=== PATIENT | female | born 1985 | race Caucasian/White ===

== ENCOUNTER 2017-01-30 21:39 | Emergency (ER) | payer MEDICARE, MEDICAID ==
[~2017-01-30] VITALS: Ht 162.6 cm; Wt 69.9 kg
[2017-01-30] MEDS ORDERED: BREO1INH3 INH (21:58)
[2017-01-30] MEDS ORDERED: ALBU83IN INH (21:58)
[2017-01-30] MEDS ORDERED: VITA250L PO (21:58)
[2017-01-30] MEDS ORDERED: IRON65TA PO (21:58)
[2017-01-30] MEDS ORDERED: PROA1AER INH (21:58)
[2017-01-30] MEDS ORDERED: SING10TA32 PO (21:58)
[2017-01-30] MEDS ORDERED: LEVO10VL IM (21:58)
[2017-01-30] MEDS ORDERED: dexameTHASONE 20 MG/5 ML VIAL (J1100) IV ONE (22:00)
[2017-01-30] MEDS ORDERED: MAGNESIUM *L&D* 4 GM/100 ML BAG (40MG/ML) (J3475) IV ONE (22:00)
[2017-01-30] MEDS: IPRATROPIUM 0.5MG/ALBUTEROL 2.5MG INH SOL UD 3ML (DUONEB)(J7620) NEB SCH ×2 (22:09→22:10)
[2017-01-30] MEDS: LEVALBUTEROL 1.25 MG/0.5 ML CONCENTRATE NEB INH SCH ×2 (23:30→23:31)
[2017-01-31 00:27] LABS: ABG BASE EXCESS -3.9 (-2.0-2.0); ABG HCO3 19.7 MEQ/L (22.0-26.0); ABG PARTIAL PRESSURE CO2 31.9 mmHg (35.0-45.0); ABG PARTIAL PRESSURE O2 170.1 mmHg (75.0-100.0); ABG STANDARD HCO3 21.3 MEQ/L (22.0-26.0); ABG TOTAL CO2 20.7 MEQ/L (22.0-29.0); ABG pH (ARTERIAL) 7.409 UNITS (7.350-7.450)
[2017-01-31 01:14] VITALS: BP 115/63
[2017-01-31] MEDS ORDERED: PRED20TA PO (02:03)
--- NOTE | 2017-01-31 08:39 | REP ---
Portable chest, 01/30/2017, 10:09 p.m., single frontal view: Comparisons 01/16/2010. The focal density noted in the left parahilar zone previously is no longer present. There is a healed fracture of the left sixth rib, not present previously. Lung pham are clear. Cardiac size is normal. The josé miguel, mediastinum, and bony thorax are unremarkable. Impression: There are no acute cardiopulmonary findings. Signed by Itz Hassan MD 01/31/2017 08:30 A
[2017-01-31] MEDS ORDERED: B-1210009 PO (12:09)
[2017-01-31] MEDS ORDERED: BREO1INH INH (12:09)
[2017-01-31] MEDS ORDERED: LEVO100T5 PO (12:09)
== END 2017-01-31 02:16 | disposition left against medical advice (07) ==
LOC: M ED 22:29
DX: J96.00 Acute respiratory failure, unspecified whether with hypoxia or hypercapnia (principal); Z91.040 Latex allergy status; J30.1 Allergic rhinitis due to pollen; Z79.899 Other long term (current) drug therapy; Z79.51 Long term (current) use of inhaled steroids; Z87.891 Personal history of nicotine dependence
CPT/HCPCS: 36600; 71010; 82803; 94640; 96374; 96375; 99284; J1100; J3475

== ENCOUNTER 2017-01-31 10:25 | Observation (INO) | payer MEDICARE, MEDICAID ==
[~2017-01-31] VITALS: Ht 157.5 cm; Wt 67.1 kg
[~2017-01-31 10:25] MED LIST: ALBU83IN INH; BREO1INH3 INH; IRON65TA PO; LEVO10VL IM; LEVOTHYROXINE 100MCG TABLET (0.1MG) PO SCH; PRED20TA PO; PROAAER10 INH; SING10TA32 PO; VITA250L PO
[2017-01-31] MEDS ORDERED: MAG SULF 1GM/100ML (MAG RUN) 1 GM in APPROPRIATE DILUENT 1 EA IV ONE (11:00)
[2017-01-31] MEDS ORDERED: IPRATROPIUM 0.5MG/ALBUTEROL 2.5MG INH SOL UD 3ML (DUONEB)(J7620) NEB ONE ×2 (11:00→11:45)
[2017-01-31] MEDS ORDERED: ALBUTEROL SULFATE 2.5 MG/0.5 ML INH NEB SOLN NEB ONE ×2 (11:00→11:45)
[2017-01-31] MEDS ORDERED: methylPREDNISolone INJ 125 MG/2 ML VIAL (J2930) IV ONE (11:00)
[2017-01-31 11:52] LABS: ANION GAP 8 MEQ/L (8-16); BLOOD UREA NITROGEN 11 MG/DL (7-18); CALCIUM LEVEL 9.3 MG/DL (8.5-10.1); CARBON DIOXIDE LEVEL 23 MEQ/L (21-32); CHLORIDE LEVEL 107 MEQ/L (98-107); CREATININE FOR GFR 0.66 MG/DL (0.55-1.02); GLOMERULAR FILTRATION RATE > 60.0 (>60); GLUCOSE, FASTING 116 MG/DL (70-105); POTASSIUM SERUM 4.4 MEQ/L (3.5-5.1); SODIUM LEVEL 138 MEQ/L (136-145)
[2017-01-31 11:54] LABS: BASO % 0.1 % (0.0-1.0); EOS % 0.1 % (0.0-3.0); LARGE UNSTAINED CELL % 0.4 % (0.0-4.0); LYMPH # 0.8 K/mm3 (1.5-4.5); LYMPH % 8.5 % (24.0-44.0); MEAN CORPUSCULAR HEMOGLOBIN 28.6 pg (27.0-33.0); MEAN CORPUSCULAR HGB CONC 33.4 g/dl (32.0-36.5); MEAN CORPUSCULAR VOLUME 85.8 fl (80.0-96.0); MONO # 0.3 K/mm3 (0.0-0.8); MONO % 3.4 % (0.0-5.0); NEUTROPHILS # 8.3 K/mm3 (1.8-7.7); NEUTROPHILS % 87.6 % (36.0-66.0); PLATELET COUNT, AUTOMATED 281 k/mm3 (150-450); RED CELL DISTRIBUTION WIDTH 14.1 % (11.5-14.5); WHITE BLOOD COUNT 9.5 K/mm3 (4.0-10.0)
--- NOTE | 2017-01-31 12:05 | REP ---
Portable chest, 01/31/2017, 53, single AP view, the patient sitting: Comparison is 2016. Lung pham are clear. Cardiac size is normal. The josé miguel, mediastinum, and bony thorax are unremarkable. There is no filled left sixth rib fracture. Impression: No acute cardiopulmonary findings. Signed by Itz Hassan MD 01/31/2017 11:57 A
[2017-01-31] MEDS ORDERED: B-1210009 PO (12:09)
[2017-01-31] MEDS ORDERED: LEVO100T5 PO (12:09)
[2017-01-31] MEDS ORDERED: BREO1INH INH (12:09)
--- NOTE | 2017-01-31 13:14 | HPEPDOC ---
General Date of Admission 01/31/17 Other Providers Patient cannot remember name of PCP at this time Chief Complaint The patient is a 31-year-old female admitted with a reason for visit of Asthma. History of Present Illness 31-year-old female with past medical history of hypothyroidism, iron deficiency anemia, seasonal allergies, and asthma presented to the ER with a chief complaint of worsening shortness of breath associated with a nonproductive cough over the last 3 days. The patient states that during this time the patient has felt subjective fevers, chills, and generalized malaise. She denies any sick contacts. She states that she has been trying to use her albuterol treatments at home, but her shortness of breath has not improved. The patient does state that she usually has an asthma exacerbation when the weather is changing from season to season. She denies any history of intubations in the past. At this time, the patient denies any acute complaints of chest pain, palpitations, abdominal pain, lightheadedness/dizziness, or any nausea/vomiting/ diarrhea. Of note, the patient did present earlier this morning to the ER for treatment of the same, however left AGAINST MEDICAL ADVICE. She now returns for worsening of her shortness of breath. At this time, the patient will be admitted under the hospitalist service for further evaluation and management of asthma exacerbation. Home Medications Scheduled (Iron) 325 Mg Tab, 325 MG PO DAILY, (Reported) Cyanocobalamin (B-12) 1,000 Mcg Tab, 1,000 MCG PO DAILY, (Reported) Fluticasone/Vilanterol (Breo Ellipta 100-25 Mcg/INH) 1 Inh Inh, 1 PUFF INH DAILY , (Reported) Levothyroxine Sodium (Synthroid) 100 Mcg Tab, 100 MCG PO DAILY, (Reported) Montelukast Sodium (Singulair) 10 Mg Tab, 10 MG PO DAILY, (Reported) Scheduled PRN Albuterol Sulfate (Proair Hfa) 108 Mcg/Act Aer, 2 PUFF INH Q4H PRN for SOB/ WHEEZING, (Reported) Albuterol Sulfate (Albuterol Sulfate) 2.5 Mg/3 Ml Nebu, 2.5 MG INH for SOB/ WHEEZING, (Reported) Allergies Coded Allergies: Latex (Verified Allergy, Intermediate, RASH, 01/30/17) Pollen Extract (Verified Allergy, Unknown, 01/30/17) Prednisone (Verified Allergy, Unknown, 01/30/17) hives Pregabalin (Verified Allergy, Unknown, 01/30/17) throat closure Pseudoephedrine (Verified Allergy, Unknown, 01/30/17) diff breathing Topiramate (Verified Allergy, Unknown, 01/30/17) feet numbness Tramadol (Verified Allergy, Unknown, 01/30/17) throat closure Past Medical History Medical History As noted in HPI. Surgical History Surgery for hammertoe and bunions over 15 years ago Family History Significant Family History: No pertinent family hx Social History * Smoker: former Smoker, other (previously smoked half a pack to pack a day for 17+ years of tobacco. Quit one month ago) Alcohol: Denies Drugs: denies Functionally independent at baseline. On disability. Review of Symptoms Constitutional: Reports: Chills, Fever, Malaise Eyes: Denies: Pain, Vision change ENT: Denies: Head Aches, Ear Pain Skin: Denies: Rash, Lesions Pulmonary: Reports: Dyspnea, Cough Cardiovascular: Denies: Chest Pain, Palpitations Gastrointestinal: Denies: Nausea, Vomiting, Abdominal Pain Genitourinary: Denies: Dysuria, Frequency, Incontinence Hematologic: Denies: Bruising, Bleeding Excessively Physical Examination General Exam: Positive: Alert, Cooperative, Mild Distress ENT Exam: Positive: Atraumatic, Mucous membr. moist/pink Neck Exam: Negative: JVD Chest Exam: Positive: Rhonchi, Wheezing, Diminished, Negative: Rales Heart Exam: Positive: Rate Normal, Normal S1, Normal S2 Telemetry: Positive: Sinus Abdomen Exam: Positive: Soft, Negative: Tenderness Extremity Exam: Negative: Tenderness, Swelling Psych Exam: Positive: Oriented x 3 Vital Signs Vital Signs Date Time Temp Pulse Resp B/P (MAP) Pulse Ox O2 Delivery O2 Flow Rate FiO2 01/31/17 11:58 118 01/31/17 10:50 01/31/17 10:26 97.3 22 92 Room Air Laboratory Data Labs 24H Laboratory Tests 2 01/31/17 11:04: White Blood Count 9.5, Red Blood Count 5.06, Hemoglobin 14.5, Hematocrit 43.4, Mean Corpuscular Volume 85.8, Mean Corpuscular Hemoglobin 28.6, Mean Corpuscular Hemoglobin Concent 33.4, Red Cell Distribution Width 14.1, Platelet Count 281, Neutrophils (%) (Auto) 87.6H, Lymphocytes (%) (Auto) 8.5L, Monocytes (%) (Auto) 3.4, Eosinophils (%) (Auto) 0.1, Basophils (%) (Auto) 0.1, Neutrophils # (Auto) 8.3H, Lymphocytes # (Auto) 0.8L, Monocytes # (Auto) 0.3, Eosinophils # (Auto) 0.0, Basophils # (Auto) 0.0, Large Unclassified Cells % 0.4 , Large Unclassified Cells # 0.0, Anion Gap 8, Glomerular Filtration Rate > 60.0 , Blood Urea Nitrogen 11, Creatinine 0.66, Sodium Level 138, Potassium Level 4.4 , Chloride Level 107, Carbon Dioxide Level 23, Calcium Level 9.3 CBC/BMP Laboratory Tests 01/31/17 11:04 Red Blood Count 5.06, Mean Corpuscular Volume 85.8, Mean Corpuscular Hemoglobin 28.6, Mean Corpuscular Hemoglobin Concent 33.4, Red Cell Distribution Width 14.1 , Neutrophils (%) (Auto) 87.6 H, Lymphocytes (%) (Auto) 8.5 L, Monocytes (%) ( Auto) 3.4, Eosinophils (%) (Auto) 0.1, Basophils (%) (Auto) 0.1, Neutrophils # ( Auto) 8.3 H, Lymphocytes # (Auto) 0.8 L, Monocytes # (Auto) 0.3, Eosinophils # ( Auto) 0.0, Basophils # (Auto) 0.0, Calcium Level 9.3 Plan / VTE VTE Prophylaxis Ordered?: Yes Plan Plan Asthma Exacerbation We will admit the patient to med/surge unit Chest x-ray with no acute findings Respiratory panel, sputum culture ordered At this time, the patient does not have any indication for antibiotics as this does appear to be viral in etiology Solu-Medrol 60 mg every 6 hours ordered We will order [id number] nebulizer therapy We will continue to monitor the patient's respiratory status Hypothyroidism Continue supplementation Iron deficiency anemia Hemoglobin appears to be stable Continue iron supplementation Seasonal allergies Continue montelukast DVT prophylaxis Lovenox SC The patient will be admitted under the service of Dr. Cody, who will begin to follow the patient on 02/01/17 at 7 AM. PARKER ROYAL MD Jan 31, 2017 13:14
[2017-01-31] MEDS ORDERED: ONDANSETRON 4MG/2ML VIAL (J2405) IV PRN (13:15)
[2017-01-31] MEDS ORDERED: IPRATROPIUM 0.5MG/ALBUTEROL 2.5MG INH SOL UD 3ML (DUONEB)(J7620) NEB PRN (13:15)
[2017-01-31] MEDS ORDERED: NS 1,000 ML IV SCH (14:00)
[2017-01-31] MEDS: methylPREDNISolone INJ 125 MG/2 ML VIAL (J2930) IV SCH ×2 (14:17→20:35)
[2017-01-31] MEDS: ENOXAPARIN 40 MG/0.4 ML SYRINGE (J1650) SC SCH (14:18)
[2017-01-31] MEDS: MONTELUKAST 10 MG TAB PO SCH (14:19)
[2017-01-31] MEDS: LEVOTHYROXINE 100MCG TABLET (0.1MG) PO SCH (14:19)
[2017-01-31] MEDS: guaiFENesin ER 600 MG TAB PO SCH ×2 (14:19→20:36)
[2017-01-31] MEDS: FERROUS SULFATE 325MG TAB PO SCH (14:19)
[2017-01-31] MEDS: CYANOCOBALAMIN 500 MCG TAB PO SCH (14:19)
[2017-01-31] MEDS: ADVAIR DISKUS 250/50 INH PWD INH SCH ×2 (14:31→19:59)
[2017-01-31] MEDS: IPRATROPIUM 0.5MG/ALBUTEROL 2.5MG INH SOL UD 3ML (DUONEB)(J7620) NEB SCH ×3 (14:55→23:37)
[2017-01-31] MEDS: ACETAMINOPHEN TAB 650MG DOSE (2X325MG) PO PRN (14:58)
[2017-01-31 15:45] VITALS: BP 105/57
[2017-01-31 20:00] VITALS: BP 124/55
[2017-02-01 02:25] VITALS: BP 132/87
[2017-02-01] MEDS: methylPREDNISolone INJ 125 MG/2 ML VIAL (J2930) IV SCH ×4 (02:27→20:16)
[2017-02-01] MEDS: PANTOPRAZOLE 40MG INJ (PROTONIX) (C9113) IV SCH ×2 (03:21→20:17)
[2017-02-01] MEDS: CEPACOL LOZENGE PO PRN ×2 (03:44→20:17)
[2017-02-01] MEDS: IPRATROPIUM 0.5MG/ALBUTEROL 2.5MG INH SOL UD 3ML (DUONEB)(J7620) NEB SCH ×5 (04:00→21:56)
[2017-02-01] MEDS: LEVOTHYROXINE 100MCG TABLET (0.1MG) PO SCH (06:23)
[2017-02-01 06:48] LABS: MEAN CORPUSCULAR HEMOGLOBIN 28.4 pg (27.0-33.0); MEAN CORPUSCULAR HGB CONC 33.3 g/dl (32.0-36.5); MEAN CORPUSCULAR VOLUME 85.3 fl (80.0-96.0); RED CELL DISTRIBUTION WIDTH 14.2 % (11.5-14.5); WHITE BLOOD COUNT 13.5 K/mm3 (4.0-10.0)
[2017-02-01 07:08] LABS: ANION GAP 6 MEQ/L (8-16); BLOOD UREA NITROGEN 14 MG/DL (7-18); CALCIUM LEVEL 8.7 MG/DL (8.5-10.1); CARBON DIOXIDE LEVEL 25 MEQ/L (21-32); CHLORIDE LEVEL 108 MEQ/L (98-107); CREATININE FOR GFR 0.55 MG/DL (0.55-1.02); GLOMERULAR FILTRATION RATE > 60.0 (>60); GLUCOSE, FASTING 161 MG/DL (70-105); MAGNESIUM LEVEL 2.3 MG/DL (1.8-2.4); POTASSIUM SERUM 4.1 MEQ/L (3.5-5.1); SODIUM LEVEL 139 MEQ/L (136-145)
[2017-02-01 08:30] VITALS: BP 93/69
[2017-02-01] MEDS: MONTELUKAST 10 MG TAB PO SCH (08:35)
[2017-02-01] MEDS: FERROUS SULFATE 325MG TAB PO SCH (08:35)
[2017-02-01] MEDS: CYANOCOBALAMIN 500 MCG TAB PO SCH (08:35)
[2017-02-01] MEDS: CETIRIZINE (ZyrTEC) 10 MG TAB PO SCH (08:36)
[2017-02-01] MEDS: ENOXAPARIN 40 MG/0.4 ML SYRINGE (J1650) SC SCH (08:37)
[2017-02-01] MEDS: guaiFENesin ER 600 MG TAB PO SCH ×2 (08:40→20:17)
[2017-02-01] MEDS: ADVAIR DISKUS 250/50 INH PWD INH SCH ×2 (11:53→21:56)
[2017-02-01 12:44] LABS: FREE T4 1.48 NG/DL (0.76-1.46)
--- NOTE | 2017-02-01 13:07 | IPN ---
DATE: 02/01/2017 SUBJECTIVE: The patient seen and examined in the room today. The patient stated that her breathing shows some improvement since admission. The patient continues to have significant cough. She feels there is some congestion near the bottom of the lungs. She just cannot get it out. The patient does complain of significant allergies and the patient has tried antihistamine in the past, which did not show any significant benefit. The patient in the last half year, the patient already have three asthma exacerbations. OBJECTIVE: VITAL SIGNS: Temperature is 98.2, pulse is 87, respirations 22, blood pressure is 93/69. Pulse oximetry 96% with 4 liters nasal cannula. GENERAL: Mild to moderate distress secondary to respiratory distress. Alert and oriented times three. HEENT: Normocephalic, atraumatic. Extraocular movements grossly intact. CARDIOVASCULAR: Positive inspiratory and expiratory wheezes. Poor respiratory effort. Accessory muscle use. No rhonchi appreciated. ABDOMEN: Soft, nontender, nondistended. Bowel sounds present. No rebound. No guarding. EXTREMITIES: No edema. No sign of cyanosis. LABORATORY DATA: WBC is 13.5, hemoglobin 11.9, hematocrit 35.7, platelet count is 245. Sodium is 139, potassium 4.1, chloride is 108. Carbon dioxide 25, BUN 14, creatinine 0.55. GFR greater than 60. Fasting glucose is 161. Calcium is 8.7. Magnesium 2.8. TSH is 0.094. ASSESSMENT AND PLAN: 1. Asthma exacerbation. The patient is currently started on the IV Solu-Medrol. The patient has nebulizer treatment as needed around the clock. Respiratory panel is negative. Follow with sputum cultures. The patient will have a trial of Acapella. Will start a trial of Zyrtec. 2. Hypothyroidism. Currently the patient has been taking Synthroid at 100 mcg. The patient showing extremely low TSH. Will follow with free T4. 3. Iron deficiency anemia. Continue iron supplements. 4. Bipolar. Diagnosis was obtained from the patient. The patient is in the process of establishing with a new psychiatrist in outpatient setting. 5. Deep venous thrombosis (DVT) prophylaxis. The patient on Lovenox.
[2017-02-01 17:00] VITALS: BP 118/59
[2017-02-01 20:00] VITALS: BP 116/59
[2017-02-01] MEDS: ACETAMINOPHEN TAB 650MG DOSE (2X325MG) PO PRN (20:18)
[2017-02-02] VITALS: BP 109/56
[2017-02-02] MEDS: methylPREDNISolone INJ 125 MG/2 ML VIAL (J2930) IV SCH ×2 (02:15→07:59)
[2017-02-02] MEDS: IPRATROPIUM 0.5MG/ALBUTEROL 2.5MG INH SOL UD 3ML (DUONEB)(J7620) NEB SCH ×3 (02:58→11:14)
[2017-02-02 04:00] VITALS: BP 121/62
[2017-02-02] MEDS: LEVOTHYROXINE 100MCG TABLET (0.1MG) PO SCH (05:53)
[2017-02-02 06:48] LABS: MEAN CORPUSCULAR VOLUME 87.7 fl (80.0-96.0); RED CELL DISTRIBUTION WIDTH 13.9 % (11.5-14.5); WHITE BLOOD COUNT 12.8 K/mm3 (4.0-10.0)
[2017-02-02 07:01] LABS: ANION GAP 7 MEQ/L (8-16); BLOOD UREA NITROGEN 17 MG/DL (7-18); CALCIUM LEVEL 8.7 MG/DL (8.5-10.1); CARBON DIOXIDE LEVEL 26 MEQ/L (21-32); CHLORIDE LEVEL 107 MEQ/L (98-107); CREATININE FOR GFR 0.63 MG/DL (0.55-1.02); GLOMERULAR FILTRATION RATE > 60.0 (>60); GLUCOSE, FASTING 150 MG/DL (70-105); POTASSIUM SERUM 4.5 MEQ/L (3.5-5.1); SODIUM LEVEL 140 MEQ/L (136-145)
[2017-02-02] MEDS: ADVAIR DISKUS 250/50 INH PWD INH SCH (07:27)
[2017-02-02 08:00] VITALS: BP 108/60
[2017-02-02] MEDS: FERROUS SULFATE 325MG TAB PO SCH (08:19)
[2017-02-02] MEDS: CETIRIZINE (ZyrTEC) 10 MG TAB PO SCH (08:19)
[2017-02-02] MEDS: CYANOCOBALAMIN 500 MCG TAB PO SCH (08:19)
[2017-02-02] MEDS: MONTELUKAST 10 MG TAB PO SCH (08:20)
[2017-02-02] MEDS: ENOXAPARIN 40 MG/0.4 ML SYRINGE (J1650) SC SCH (08:20)
[2017-02-02] MEDS: CEPACOL LOZENGE PO PRN (08:20)
[2017-02-02] MEDS: guaiFENesin ER 600 MG TAB PO SCH (08:20)
[2017-02-02] MEDS ORDERED: DEXA1.5T PO (10:01)
[2017-02-02] MEDS ORDERED: CETI10TA PO (10:55)
--- NOTE | 2017-02-02 16:50 | DSES ---
DATE OF ADMISSION: 01/31/2017 DATE OF DISCHARGE: 02/02/2017 PRIMARY CARE PROVIDER: Dr. Valle. CONSULTANTS: None. PROCEDURES: None. COMPLICATIONS: None. ADMISSION/DISCHARGE DIAGNOSES: 1. Asthma exacerbations. 2. Hypothyroidism. 3. Bipolar. 4. Deficiency anemia. HOSPITALIZATION COURSE: The patient is a 31-year-old female who originally presented to [facility] emergency room on 01/30/2017, evening time with some difficulty breathing. Patient was diagnosed with asthma exacerbation. Breathing treatment was given to the patient and patient signed out against medical advice (AMA). In just a few hours the patient came back to [facility] emergency room early in the morning with worsening symptoms and hospitalist team called for admissoin. Patient was started on intravenous (IV) steroids with intermittent breathing treatments. Patient was also started on the allergy medications. Patient's symptoms continued to improve. Patient's oxygen requirement was decreased from 4 liters nasal cannula to room air. On 02/02/2017 the patient was determined stable for discharge with the recommendation to continue to taper. Patient is recommended to followup with primary care provider due to frequent asthma exacerbation (3 times in half a year). Patient is recommended to establish with a life enrichment manager. Patient carries a chronic diagnosis of bipolar and is recommended patient establish with a psyhiatrist. OBJECTIVE: VITAL SIGNS: Temperature is 98.4, pulse is 89, respirations 20, blood pressure is 108/60. Pulse oximetry 93% on room air. LABORATORY DATA: WBC 12.8, hemoglobin is 12, hematocrit 37.7, platelet count 278. Sodium 140, potassium 4.5, chloride 107, carbon dioxide is 26, BUN 17, creatinine 0.63, GFR greater than 60, fasting glucose 150, calcium 8.7. Sputum culture on 01/31/2017 show normal tarik. Respiratory panel on 01/31/2017 normal. Patient had blood cultures on 01/31/2017 Preliminary show no growth. IMAGING STUDIES: Chest x-ray on 01/31/2017 showed no acute cardiopulmonary findings. DISCHARGE MEDICATIONS: - Zyrtec 10 mg by mouth daily - Dexamethasone 1.5 mg by mouth on the taper regimen (1 mg 6 hours by mouth twice a day for 2 days then 1 mg 6 hours by mouth daily for 3 days then 1 mg 3 hours by mouth for 2 days). DISCHARGE INSTRUCTIONS: Discontinue home. Activity as tolerated. Diet as tolerated. Patient should followup with primary care provider in one week. Patient is recommended that she establish with a life enrichment manager from the primary care provider referral. Patient is recommended to follow up with a psychiatrist for her bipolar. DISCHARGE CONDITION: Stable. DISCHARGE TIME: >30MIN MTDD
== END 2017-02-02 13:00 | disposition home or self-care (01) ==
LOC: M ED 10:49 → M ED INP 13:02 → M PED 15:40
PROVIDERS: ADMIT Internal Medicine; ATTEND Internal Medicine
DX: J45.901 Unspecified asthma with (acute) exacerbation (principal); E03.9 Hypothyroidism, unspecified; F31.9 Bipolar disorder, unspecified; D50.9 Iron deficiency anemia, unspecified; Z79.899 Other long term (current) drug therapy; Z91.040 Latex allergy status; Z88.8 Allergy status to other drugs, medicaments and biological substances; Z87.891 Personal history of nicotine dependence
CPT/HCPCS: 36415; 36600; 71010; 80048; 82803; 83735; 84439; 84443; 85025; 85027; 87040; 87070; 87205; 87486; 87581; 87633; 87798; 94640; 96361; 96372; 96374; 96375; 96376; 99284; C9113; G0378; J1100; J1650; J2405; J2930; J3475

== ENCOUNTER 2017-04-05 09:53 | Inpatient (IN) | payer MEDICARE, MEDICAID ==
[~2017-04-05] VITALS: Ht 163.8 cm; Wt 69.5 kg
[~2017-04-05 09:53] MED LIST changes: +B-1210009 PO; +BREO1INH INH; +CETI10TA PO; +DEXA1.5T PO; +LEVO100T5 PO; -LEVOTHYROXINE 100MCG TABLET (0.1MG) PO SCH; +predniSONE 20 MG TAB PO SCH
[2017-04-05] MEDS ORDERED: BUSP5TA PO (10:27)
[2017-04-05] MEDS ORDERED: methylPREDNISolone INJ 125 MG/2 ML VIAL (J2930) IV ONE (10:45)
[2017-04-05 10:52] LABS: BASO % 0.4 % (0.0-1.0); EOS # 0.6 K/mm3 (0.0-0.50); LARGE UNSTAINED CELL # 0.2 K/mm3 (0.0-0.4); LARGE UNSTAINED CELL % 1.6 % (0.0-4.0); LYMPH # 1.5 K/mm3 (1.5-4.5); LYMPH % 15.4 % (24.0-44.0); MEAN CORPUSCULAR HEMOGLOBIN 28.7 pg (27.0-33.0); MEAN CORPUSCULAR HGB CONC 33.8 g/dl (32.0-36.5); MONO # 0.6 K/mm3 (0.0-0.8); MONO % 5.8 % (0.0-5.0); NEUTROPHILS # 6.9 K/mm3 (1.8-7.7); NEUTROPHILS % 70.8 % (36.0-66.0); PLATELET COUNT, AUTOMATED 252 k/mm3 (150-450); RED CELL DISTRIBUTION WIDTH 13.5 % (11.5-14.5); WHITE BLOOD COUNT 9.8 K/mm3 (4.0-10.0)
[2017-04-05 11:09] LABS: ALBUMIN 3.5 GM/DL (3.2-5.2); ALBUMIN/GLOBULIN RATIO 1.25 (1.00-1.93); ALKALINE PHOSPHATASE 86 U/L (45-117); ALT/SGPT 13 U/L (12-78); ANION GAP 9 MEQ/L (8-16); AST/SGOT 11 U/L (15-37); BILIRUBIN,DIRECT 0.2 MG/DL (0.0-0.2); BILIRUBIN,TOTAL 0.9 MG/DL (0.2-1.0); BLOOD UREA NITROGEN 7 MG/DL (7-18); CALCIUM LEVEL 8.4 MG/DL (8.5-10.1); CARBON DIOXIDE LEVEL 21 MEQ/L (21-32); CHLORIDE LEVEL 113 MEQ/L (98-107); CREATININE FOR GFR 0.68 MG/DL (0.55-1.02); GLOMERULAR FILTRATION RATE > 60.0 (>60); GLUCOSE, FASTING 95 MG/DL (70-105); POTASSIUM SERUM 4.4 MEQ/L (3.5-5.1); SODIUM LEVEL 143 MEQ/L (136-145); TOTAL PROTEIN 6.3 GM/DL (6.4-8.2)
--- NOTE | 2017-04-05 11:11 | REP ---
PA and lateral chest: Comparison is the portable chest dated 01/31/2017. The lung pham are clear. The cardiac size is normal The josé miguel, mediastinum, and bony thorax are unremarkable. Impression: Negative PA and lateral chest. There is no interval change. Signed by Itz Hassan MD 04/05/2017 11:03 A
[2017-04-05] MEDS: IPRATROPIUM 0.5MG/ALBUTEROL 2.5MG INH SOL UD 3ML (DUONEB)(J7620) NEB PRN ×3 (11:27→12:47)
[2017-04-05] MEDS ORDERED: TRAZ-136 PO (13:19)
[2017-04-05] MEDS ORDERED: DULO1CAP2 PO (13:19)
--- NOTE | 2017-04-05 13:31 | ECGEPIP ---
Stationary ECG Study [facility] - ED Test Date: 2017-04-05 Pat Name: ANDREA CABRAL Department: Room: - Gender: F Chief Hospital Administrator: ZAIDA : [id number] Requested By: Viktoria Collier Order Number: [id number] Reading MD: Viktoria Collier Measurements Intervals [place] Rate: 85 P: 46 MO: 137 QRS: 14 QRSD: 92 T: 9 QT: 396 QTc: 472 Interpretive Statements SINUS RHYTHM NSTTW ABNORMALITY NO PRIOR FOR COMPARISON Electronically Signed On 04-05-2017 13:31:31 EDT by Viktoria Collier
[2017-04-05] MEDS: ALBUTEROL SULFATE 2.5 MG/0.5 ML INH NEB SOLN NEB SCH ×2 (14:00→19:00)
[2017-04-05] MEDS: PANTOPRAZOLE 40MG TAB (PROTONIX) PO SCH (14:00)
[2017-04-05 14:20] VITALS: BP 106/54
[2017-04-05] MEDS: methylPREDNISolone INJ 40 MG/1 ML VIAL (J2920) IV SCH (17:46)
[2017-04-05] MEDS: BUDESONIDE 0.5 MG/2 ML INHALATION SUSPENSION INH SCH (18:57)
[2017-04-05] MEDS: FORMOTEROL FUMARATE 20 MCG/2 ML INHALATION SOLUTION (PERFOROMIST) INH SCH (18:57)
[2017-04-05 19:43] VITALS: BP 118/62
[2017-04-05] MEDS: busPIRone 5 MG TAB PO SCH (20:20)
[2017-04-05] MEDS ORDERED: traZODone 100 MG TAB PO SCH (21:00)
[2017-04-06] MEDS: ALBUTEROL SULFATE 2.5 MG/0.5 ML INH NEB SOLN NEB SCH ×3 (01:03→14:09)
[2017-04-06] MEDS: methylPREDNISolone INJ 40 MG/1 ML VIAL (J2920) IV SCH ×3 (01:21→18:07)
[2017-04-06 04:00] VITALS: BP 82/48
[2017-04-06 04:05] VITALS: BP 90/50
[2017-04-06] MEDS ORDERED: NS 500 ML IV ONE (04:15)
[2017-04-06 05:45] VITALS: BP 101/59
[2017-04-06] MEDS ORDERED: LEVOTHYROXINE 100MCG TABLET (0.1MG) PO SCH (06:00)
--- NOTE | 2017-04-06 06:11 | HPE ---
DATE OF ADMISSION: 04/05/2017 PRIMARY CARE PROVIDER: None. CHIEF COMPLAINT: Increasing shortness of breath and wheezing for 1 day. PAST MEDICAL HISTORY: 1. Asthma. 2. Seasonal allergies. 3. Hypothyroidism. 4. Iron deficiency anemia. 5. Anxiety. 6. Bipolar disorder HISTORY OF PRESENT ILLNESS: This is a 31-year-old female who is an active smoker, presented to the hospital with increased shortness of breath and wheezing for 1 day. She has been using her albuterol inhaler every 2-3 hours without any relief of symptoms. Patient recently moved up from [place] and does not have any primary care here. She has been prescribed Breo, however, does not use it because she says that it does not help her. Only uses her albuterol as required. Patient says that during this summer, her symptoms really worsened because of excessive environmental allergies. She has been taking anti-allergy medications, also, without any help. On presentation, she was extremely tight and wheezy, not able to talk in full sentences. Patient was given [id number] nebulizers, Solu-Medrol, as well as received magnesium by emergency medical service (EMS), and patient was requiring oxygen. In spite the above treatment, patient continued to require oxygen 2 liters to maintain saturations above 90%, so the hospitalist service was consulted for admission for asthma exacerbation. PAST SURGICAL HISTORY: Hammertoe surgery. Bunion surgery. ALLERGIES: To LATEX, pollen, PREDNISONE, PREGABALIN, PSEUDOEPHEDRINE, TOPIRAMATE, and TRAMADOL. SOCIAL HISTORY: Patient is a current smoker; smokes about half a pack per day. Does not abuse alcohol or recreational drugs. FAMILY HISTORY: Siblings and parents also with history of asthma. She, herself, was diagnosed with asthma at the age of 15. At present, she is going to live in [place] with her sister. HOME MEDICATIONS: - buspirone 5 mg by mouth twice a day - cyanocobalamin 1000 mcg by mouth daily - Cymbalta 30 mg by mouth daily - ferrous sulfate 325 mg by mouth daily - Synthroid 100 mcg by mouth daily - Singulair 10 mg by mouth daily - trazodone 100 mg at bedtime REVIEW OF SYSTEMS: All 10-point review of systems are negative except as mentioned in history of present illness (HPI). PHYSICAL EXAM: Temperature 98.8, pulse 84, respiratory rate 22, blood pressure 105/66, pulse oximetry 94% with 2 liters nasal cannula. GENERAL: Patient awake, alert, and oriented times three, sitting up in bed, in no acute distress. HEENT: Normocephalic, atraumatic. Moist mucous membranes. Anicteric eyes. CHEST: Bilateral wheezing and rhonchi present. CARDIOVASCULAR: S1, S2 regular. No rub, murmur, or gallop. ABDOMEN: Soft, nontender. Bowel sounds present. EXTREMITIES: No edema. LABORATORY DATA: WBC 9.8, hemoglobin 13.9, platelets 252. Sodium 143, potassium 4.4, chloride 113, bicarbonate 21, BUN 7, creatine 0.6, glucose 95. Liver function tests are normal. TSH 0.367. ASSESSMENT AND PLAN: This is a 31 year old female admitted for asthma exacerbation. PLAN: 1. For asthma exacerbation, will continue the patient on albuterol nebulizers, also budesonide and formoterol nebulizers. Will continue with methylprednisolone IV. Will continue with Singulair. 2. Bipolar disorder. Will continue with trazodone, buspirone. 3. Chronic back pain and history of neuropathy. Will continue with Cymbalta. 4. Hypothyroidism. Will continue with Synthroid. 5. Iron deficiency anemia. Will continue with ferrous sulfate. 6. Vitamin B12 deficiency. Will continue with cyanocobalamin. 7. Deep venous thrombosis (DVT) prophylaxis. Early ambulation and thromboembolism deterrent (JUAN LUIS) stockings.
[2017-04-06] MEDS ORDERED: LEVALBUTEROL 1.25 MG/0.5 ML CONCENTRATE NEB INH PRN (06:30)
[2017-04-06] MEDS ORDERED: NS 1,000 ML IV SCH (08:00)
[2017-04-06 08:04] LABS: BASO % 0.1 % (0.0-1.0); EOS % 0.3 % (0.0-3.0); LARGE UNSTAINED CELL % 0.2 % (0.0-4.0); LYMPH # 0.8 K/mm3 (1.5-4.5); LYMPH % 5.3 % (24.0-44.0); MEAN CORPUSCULAR HEMOGLOBIN 28.1 pg (27.0-33.0); MEAN CORPUSCULAR VOLUME 87.8 fl (80.0-96.0); MONO # 0.4 K/mm3 (0.0-0.8); MONO % 2.3 % (0.0-5.0); NEUTROPHILS # 14.1 K/mm3 (1.8-7.7); NEUTROPHILS % 91.9 % (36.0-66.0); PLATELET COUNT, AUTOMATED 261 k/mm3 (150-450); RED CELL DISTRIBUTION WIDTH 13.9 % (11.5-14.5); WHITE BLOOD COUNT 15.4 K/mm3 (4.0-10.0)
[2017-04-06] MEDS: BUDESONIDE 0.5 MG/2 ML INHALATION SUSPENSION INH SCH ×2 (08:04→19:50)
[2017-04-06] MEDS: FORMOTEROL FUMARATE 20 MCG/2 ML INHALATION SOLUTION (PERFOROMIST) INH SCH ×2 (08:04→19:50)
[2017-04-06 08:18] LABS: ANION GAP 10 MEQ/L (8-16); BLOOD UREA NITROGEN 11 MG/DL (7-18); CALCIUM LEVEL 8.7 MG/DL (8.5-10.1); CARBON DIOXIDE LEVEL 21 MEQ/L (21-32); CHLORIDE LEVEL 109 MEQ/L (98-107); CREATININE FOR GFR 0.71 MG/DL (0.55-1.02); GLOMERULAR FILTRATION RATE > 60.0 (>60); GLUCOSE, FASTING 139 MG/DL (70-105); POTASSIUM SERUM 4.3 MEQ/L (3.5-5.1); SODIUM LEVEL 140 MEQ/L (136-145)
[2017-04-06] MEDS: busPIRone 5 MG TAB PO SCH (08:54)
[2017-04-06 09:00] VITALS: BP 106/60
[2017-04-06] MEDS ORDERED: CYANOCOBALAMIN 500 MCG TAB PO SCH (09:00)
[2017-04-06] MEDS ORDERED: FERROUS SULFATE 325MG TAB PO SCH (09:00)
[2017-04-06] MEDS ORDERED: MONTELUKAST 10 MG TAB PO SCH (09:00)
[2017-04-06] MEDS ORDERED: LevoFLOXacin IV 500 MG in APPROPRIATE DILUENT 1 EA IV SCH (09:00)
[2017-04-06] MEDS ORDERED: DULoxetine 30 MG CAP (CYMBALTA) PO SCH (09:00)
[2017-04-06] MEDS: PANTOPRAZOLE 40MG TAB (PROTONIX) PO SCH (09:10)
--- NOTE | 2017-04-06 13:11 | IPNPDOC ---
Text Note Date of Service The patient was seen on 04/06/17. NOTE Subjective: States she still has dyspnea and wheezing. States she's been very stressed lately as her ex- is trying to take her child away, and they have been going to court. Objective: Vitals: (see below) General: No acute distress, laying comfortably in bed. HEENT: Moist mucous membranes. Neck: No JVD or lymphadenopathy Cardiac: RRR, No murmurs Pulm: Expiratory wheezing and rhonchi bilaterally. No use of accessory muscles. No stridor. Abd: NT/ND + BS Ext: No edema or cyanosis Labs (see below) Images: CXR 04/05/17 Impression: Negative PA and lateral chest. There is no interval change. Assessment/Plan 1. Asthma exacerbation-continue nebs, steroids. Levaquin added. Continue monitor closely. 2. Bipolar disorder/anxiety- continue home meds 3. Chronic lower back pain and neuropathy- continue Cymbalta 4. Iron deficiency anemia- fair sulfate 5. History of B12 deficiency- on replacement DVT prophy: SCDs/out of bed ambulating VS,Fishbone, I+O VS, Fishbone, I+O Laboratory Tests 04/06/17 07:48 Red Blood Count 4.65, Mean Corpuscular Volume 87.8, Mean Corpuscular Hemoglobin 28.1, Mean Corpuscular Hemoglobin Concent 32.0, Red Cell Distribution Width 13.9 , Neutrophils (%) (Auto) 91.9 H, Lymphocytes (%) (Auto) 5.3 L, Monocytes (%) ( Auto) 2.3, Eosinophils (%) (Auto) 0.3, Basophils (%) (Auto) 0.1, Neutrophils # ( Auto) 14.1 H, Lymphocytes # (Auto) 0.8 L, Monocytes # (Auto) 0.4, Eosinophils # (Auto) 0.0, Basophils # (Auto) 0.0, Calcium Level 8.7 Vital Signs Date Time Temp Pulse Resp B/P (MAP) Pulse Ox O2 Delivery O2 Flow Rate FiO2 04/06/17 12:15 96 Nasal Cannula 2.0 04/06/17 09:00 99.6 73 18 106/60 (75) I&O- Last 24 Hours up to 6 AM 04/06/17 05:59 Intake Total 1695 ml Output Total 700 ml Balance 995 ml SAMANTHA AGUILAR MD Apr 06, 2017 13:11
[2017-04-06 16:15] VITALS: BP 128/62
[2017-04-06 20:00] VITALS: BP 119/73
--- NOTE | 2017-04-06 21:07 | DSES ---
DATE OF ADMISSION: 04/06/2017 DATE OF DISCHARGE: Time patient left against medical advice was around 8:10. DISCHARGE AGAINST MEDICAL ADVICE DISCHARGE DIAGNOSES: 1. Asthma exacerbation. 2. Bipolar disorder. 3. Anxiety. 4. Chronic lower back pain. 5. Iron deficiency anemia. 6. History of B12 deficiency. CONSULTANTS: None. PROCEDURES/IMAGING: Patient had a two view chest x-ray on 04/05/2017 that showed negative PA and lateral chest. HISTORY OF PRESENT ILLNESS: This is a 31-year-old female who is an active smoker who presented to the hospital with increased shortness of breath and wheezing for one day. She had been using her albuterol inhaler every 2 to 3 hours without any relief of the symptoms. The patient recently moved from [place] and does not have a primary care here. She has been prescribed Breo; however, does not use it because she says that it does not help her and only uses albuterol as required. The patient says that this summer her symptoms really worsened because of excessive environmental allergies. She has been taking anti allergy medications without any help. On presentation, she was extremely tight and wheezy, not able to talk in full sentences. The patient was given back to back nebulizers with Solu-Medrol, as well as receiving magnesium by emergency medical services (EMS). The patient was requiring oxygen. Despite above treatment, the patient continued to require 2 liters of oxygen to maintain saturation above 90% so the hospitalist was consulted for admission of asthma exacerbation. On the day of admission, the patient received Solu-Medrol and Singulair was continued, as well as budesonide and formoterol nebulizer. Chronic medications were continued. On the night of 04/06/2017, the patient told the nurse that she would like to leave against medical advice. Evening resident and attending came to patient's room and confirmed that the patient would like to leave against medical advice, which means that she would accept the consequences of recurrent asthma exacerbation and possibly dying from another asthma exacerbation. The patient insisted that she left against medical advice in the past before and stated that she realizes the risks of leaving and insists that she would want to leave. Therefore, she signed paperwork for leaving against medical advice. DISPOSITION: Leave against medical advice. CONDITION: Guarded. FOLLOWUP: The patient should call to establish a new primary care as soon as she can. Otherwise, if she has increased shortness of breath she should call emergency room. The patient has been discussed with attending doctor, Dr. Wong. My preceptor for this patient encounter was Dr. Wong. The preceptor was physically present in the building during the encounter and was fully available. As needed, all aspects of the patient interview, examination, medical decision making process, and medical care plan development were reviewed and approved by the preceptor. The preceptor is aware and concurs with the plan as stated in the body of this note and will attest to such by his/her cosignature.
== END 2017-04-06 20:40 | disposition left against medical advice (07) | DRG 203 ==
LOC: M ED 09:53 → EDBD 09:53 → M ED INP 13:19 → M PED 14:20 → OBSVTOIN 04-06 10:33 → INTOOBSV 04-06 10:33
PROVIDERS: ADMIT Internal Medicine Nephrology; ATTEND Internal Medicine
DX: J45.901 Unspecified asthma with (acute) exacerbation (principal); F31.9 Bipolar disorder, unspecified; M54.5 Low back pain; D50.9 Iron deficiency anemia, unspecified; G62.9 Polyneuropathy, unspecified; E53.8 Deficiency of other specified B group vitamins; J30.2 Other seasonal allergic rhinitis; E03.9 Hypothyroidism, unspecified; Z91.040 Latex allergy status; Z88.8 Allergy status to other drugs, medicaments and biological substances; Z88.5 Allergy status to narcotic agent; F17.210 Nicotine dependence, cigarettes, uncomplicated; Z82.5 Family history of asthma and other chronic lower respiratory diseases

== ENCOUNTER → 2024-08-07 | Outpatient (REF) | payer MEDICAID, OTHER ==
[~2024-08-07] MED LIST changes: +ALBU2.5V10 INH; -ALBU83IN INH; +BUSP5TA PO; +DULO1CAP5 PO; +MONT-5 PO; -SING10TA32 PO; +TRAZ-257 PO; -predniSONE 20 MG TAB PO SCH
== END ==
LOC: M LAB REF 18:35
PROVIDERS: ATTEND Physician Assistant Medical
DX: B34.9 Viral infection, unspecified (principal)